=== PATIENT | female | born 1995 | race Caucasian/White ===

== ENCOUNTER 2025-01-10 09:55 | Outpatient (AMB) | payer OTHER, SELFPAY ==
[2025-01-10 09:58] VITALS: BP 114/72; PULSE 106; TEMP 37.2; O2SAT 98; BMI 28.4
--- NOTE | 2025-01-10 09:58 | MHC.PC.OV ---
Vital Signs 01/10/25 09:58 Height 5 ft 2.25 in Weight 156 lb 9.6 oz BMI 28.4 BP 114/72 Blood Pressure Location Lt brachial Position Sitting Pulse 106 H Pulse Source Pulse Oximeter Temp 99.0 F Temp Source Oral Pulse Oximetry (%) 98 Oxygen Delivery Method Room Air Intake Visit Reasons: establish care/ prescription refills Intake Note: Patient is a new patient here to establish care. Transferring care from [facility] in [facility]. Medical records have not been requested and have not been received. Patient completed Authorization to Release Medical Information form today. 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 Required: No Accompanied by: Self / Same As Patient Allergies No Known Allergies Allergy (Verified 01/10/25 10:21) Medication List - Last Reconciled 01/10/25 by KAVON Rock No Known Home Meds Tobacco use date assessed: 01/10/25 Dental Screening Dental Screen Date: 01/10/25 Did you have a dental visit in the last 12 months?: Yes Did you have a dental problem in the last 6 months where you did not have access to dental care?: No Was dental information given to patient?: Patient has dentist HPI establish care/ prescription refills HPI Details The patient presenting to establish care Previous PCP:[facility] in [facility] Last visit: April PE:same Specialist: Not now, previously seen Psychiatry OBGYN:need referral Past medical history: ADHD-reports she was taking Adderall while seen Psychiatry. Previous PCP gave her a hard time ordering this medication and she has been struggling without it. Medications:n/a Family HX:HTN-mother, Alcohol abuse-brother Problem: Reports she is having trouble losing weight Reports working out on diet without seen much difference The patient is also requesting to go back on Adderall Discussed with the patient that I will need to see the recommendations for her being on Adderall to place an order Since his condition is not assessed in this office, however, her prescription could be maintained if it is recommended by a licensed professional. Patient also complain of left shoulder pain with cracking sounds with movements Patient also reports that when she went to donate plasma she was still that she has an arrhythmia No chest pain, shortness of breath, heart palpitation, dizziness No abdominal pain/change in bowel habits No urinary symptoms PFSH Medical History (Updated 01/11/25 @ 08:34 by KAVON Rcok) ADHD Surgical History Hx of wisdom tooth extraction History of tonsillectomy and adenoidectomy Hx of section Family History Mother Hypertension Father No problems noted. Brother Alcohol abuse Family history of substance abuse Son No problems noted. 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 1. Little interest or pleasure in doing things: not at all 2. Feeling down, depressed, or hopeless: not at all 3. Trouble falling or staying asleep, or sleeping too much: not at all 4. Feeling tired or having little energy: not at all 5. Poor appetite or overeating: not at all 6. Feeling bad about yourself - or that you are a failure or have let yourself or your family down: not at all 7. Trouble concentrating on things, such as reading the newspaper or watching television: several days 8. Moving or speaking so slowly that other people could have noticed. Or the opposite - being so fidgety or restless that you have been moving around a lot more than usual: not at all 9. Thoughts that you would be better off or of hurting yourself in some way: not at all Total score: 1 Depression Screening Interpretation: Negative Depression Screening Done: Yes 39025 - PHQ-9 Billing: Yes Source: Developed by Drs. Jesus Whaley, Kathi Elena, Ramin Lugo and colleagues, with an educational wallace from [employer]. Thrive Questionnaire Date Thrive assessed: 01/10/25 I am a: Patient What is your living situation today?: I have a steady place to live Within the past 12 months, did the food you bought not last and you didn't have the money to get more?: Never true Within the past 12 months, did you worry whether your food would run out before you got money to buy more?: Never true Do you have trouble paying for medicines?: No Do you have trouble getting transportation to medical appointments?: No Do you have trouble paying your heating and electricity bill?: No Do you have trouble taking care of your child, family member or friend?: No Do you have trouble with day-to-day activities such as bathing, preparing meals, shopping, managing finances, etc.?: No Are you currently unemployed and looking for a job?: No Are you interested in more education?: No Please select the resources that you would like help with: None Currently or been in a relationship where the following occur: No concerns reported THRIVE Score: 0 AUDIT C Alcohol Use Questionnaire (AUDIT-C) 1. How often do you have a drink containing alcohol?: Monthly or less 2. How many drinks containing alcohol do you have on a typical day when you are drinking?: 1 or 2 3. How often do you have six or more drinks on one occasion?: Never Total Score: 1 Score Reviewed/Action Taken: No ROSI-7 AMB Questionnaire ROSI-7 Date ROSI - 7 assessed: 01/10/25 Feeling nervous, anxious, or on edge: 0 = Not at all Not being able to stop or control worryin = Not at all Worrying too much about different things: 0 = Not at all Trouble relaxin = Not at all Being so restless that it is hard to sit still: 0 = Not at all Becoming easily annoyed or irritable: 1 = Several days Feeling afraid as if something awful might happen: 0 = Not at all Total ROSI-7 score (0-4 normal; 5-9 mild; 10-14 moderate; 15-21 severe): 1 Source: Developed by Kathi Roldan B.W. Ulices, Ramin Lugo and colleagues, with an educational wallace from [employer]. ROSI-7 Assessment Billing ROSI-7 Assessment Tool: ROSI-7 Assessment 42911 Review of Systems Const Details: - Psychiatric: Reports difficulties with focus due to ADHD. - Cardiovascular: Reports past cardiac arrhythmias; denies chest pain or persistent palpitations. - Musculoskeletal: Reports left shoulder discomfort with crackling sounds; denies joint pain. - Constitutional: Denies significant weight changes despite efforts at weight loss. Denies headache(s) Eyes Denies loss of vision ENT Denies vertigo, Denies dizziness, Denies headache(s) and Denies sore throat Card Denies chest pain, Denies leg edema, Denies lightheadedness and Reports other (Arrhythmia) Resp Denies cough, Denies hemoptysis and Denies wheezing GI Denies abdominal pain, Denies melena, Denies constipation, Denies diarrhea and Denies vomiting Denies urinary frequency, Denies dysuria and Denies urinary urgency Musc Reports arthralgias (Left shoulder with crepitus), Denies joint swelling, Denies numbness and Denies tingling Neuro Denies Abnormal speech present, Denies behavioral changes, Denies vertigo, Denies dizziness, Denies headache(s), Denies loss of vision, Denies memory loss, Denies numbness and Denies tingling Psych Denies anxiety, Denies behavioral changes, Denies depression, Reports difficulty concentrating, Denies memory loss and Denies panic attacks Shine/Lymph Denies easy bleeding and Denies easy bruising Aller/Immun Denies wheezing Physical exam (Primary Care) Vital Signs: Last Vital Signs Temp 99.0 F 01/10/25 09:58 Pulse 106 H 01/10/25 09:58 BP 114/72 01/10/25 09:58 Pulse Ox 98 01/10/25 09:58 Oxygen Delivery Method Room Air 01/10/25 09:58 BMI result Body Mass Index 28.4 Tobacco/Smoking Status: Tobacco use Status Tobacco use date assessed 01/10/25 01/10/25 10:04 Patient Tobacco Use Status Never used Tobacco 01/10/25 10:18 e-Cigarette/Vaping Use Never Used 01/10/25 10:18 PHQ-9: PHQ-9 Score PHQ-9: Total score 1 01/10/25 21:55 Depression Screening Interpretation: Negative Thrive Assessment: Date of Thrive Assessment Date Thrive assessed 01/10/25 01/10/25 10:04 Currently or been in a relationship where the following occur: No concerns reported Const General: healthy appearing, no acute distress, alert and awake Nutritional Appearance: well nourished Orientation/consciousness: oriented to person, oriented to place and oriented to time HENMT Ears: TM's normal bilaterally General nose exam: Normal nasal mucous membranes and turbinates present Eyes Conjunctivae: conjunctivae normal Sclerae: sclerae normal Pupils: Equal, round and reactive pupils present Neck Neck: Yes no lymphadenopathy and Yes no JVD Thyroid: Thyroid normal Carotids: no bruits Resp Effort & Inspection: normal respiratory effort and not tachypneic Auscultation: no crackles, no rales, no rhonchi and no wheezes Cardio Rate: regular rate Rhythm: regular rhythm Heart sounds: no murmurs and normal S1 and S2 GI Palpation (GI): Soft to palpation, nontender, no hepatomegaly and no splenomegaly Auscultation: normal bowel sounds General: Yes no CVA tenderness Back/Spine/Pelvis Back: no CVA tenderness Skin General skin exam: no rashes or lesions noted and dry skin Neuro General: oriented to person, oriented to place and oriented to time Cranial nerves: Yes Equal, round and reactive pupils present Speech: No Abnormal speech present Gait exam (Neuro): Normal gait present Motor exam (neuro): no tremor noted Extrem Right upper extremity: full ROM Left upper extremity: full ROM Right lower extremity: full ROM; no edema Left lower extremity: full ROM; no edema Psych Mental Status: mental status grossly normal Speech and movement: Normal speech and movement present Affect: normal affect Attitude: cooperative Thought process: Normal thought process present Coding Level of Care Code New Pt Level 3 (34001) Diagnoses Attention deficit hyperactivity disorder (ADHD), unspecified ADHD type F90.9 Attention deficit-hyperactivity disorder type: unspecified Cardiac arrhythmia, unspecified cardiac arrhythmia type I49.9 Arrhythmia type: unspecified cardiac arrhythmia Additional Codes ROSI-7 Assessment Billing - ROSI-7 Assessment Tool: ROSI-7 Assessment 86547 ([id number]) PHQ-9 - 94104 - PHQ-9 Billing: Yes ([id number]) Time Spent (min) 31 Assessment & Plan Assessment & Plan (1) ADHD: Code(s): F90.9 - Attention-deficit hyperactivity disorder, unspecified type Category: Medical Qualifiers: Attention deficit-hyperactivity disorder type: unspecified Qualified Code(s): F90.9 - Attention-deficit hyperactivity disorder, unspecified type Plan: Patient is establishing care and is looking to be started back on Adderall. Patient reports that she was sick in his medication for a while, but after started seeing a new PCP, there was some trouble in giving the medication reordered. She has been without his medication for a little while now and has been struggling to hold it together. We will obtain the information from the psychiatrist who diagnosed the patient before prescribing this medication. We will also obtain an EKG checked for any heart issues that may be an contraindication to taking this medication. (2) Arrhythmia: Code(s): I49.9 - Cardiac arrhythmia, unspecified Category: Medical Qualifiers: Arrhythmia type: unspecified cardiac arrhythmia Qualified Code(s): I49.9 - Cardiac arrhythmia, unspecified Plan: Patient reports that when she went to go give plasma she was told that she had sinus arrhythmia. An EKG ordered which scheduled labs to further evaluate. Orders: Orders Lipid Panel 01/10/25 Z. - Encounter for general adult medical examination without abnormal findings Glucose Fasting 01/10/25. - Encounter for general adult medical examination without abnormal findings XR shoulder LT min 2V 01/10/25 M25.512 - Pain in left shoulder Complete Blood Count Auto Diff 01/10/25 Z. - Encounter for general adult medical examination without abnormal findings Comprehensive [place]. Panel Fast 01/10/25. - Encounter for general adult medical examination without abnormal findings TSH reflex Free T4 01/10/25 Z. - Encounter for general adult medical examination without abnormal findings UA CC w/rflx Micro + Cult 01/10/25 Z. - Encounter for general adult medical examination without abnormal findings Vitamin D 25-OH Total 01/10/25. - Encounter for general adult medical examination without abnormal findings ECG 12 lead EKG 01/10/25 I49.9 - Cardiac arrhythmia, unspecified Referrals [facility] [employer] [employer] [facility] Referral Z01.419 - Encounter for gynecological examination (general) (routine) without abnormal findings
== END 2025-01-10 10:52 | disposition home or self-care (01) ==
DX: F90.9 Attention-deficit hyperactivity disorder, unspecified type (principal); I49.9 Cardiac arrhythmia, unspecified

== ENCOUNTER → 2025-01-10 09:55 | Outpatient (BNVA) | payer OTHER, SELFPAY | DX: F90.9 Attention-deficit hyperactivity disorder, unspecified type (principal); I49.9 Cardiac arrhythmia, unspecified | CPT/HCPCS: 96127 ==

== ENCOUNTER 2025-01-14 06:48 | Outpatient (REF) | payer OTHER, SELFPAY ==
[2025-01-14 10:12] LABS: MANUAL DIFF FLAG NO
[2025-01-14 10:25] LABS: Basophils Absolute Auto 0.1 X10*3/uL (0.0-0.2); Basophils Percent Auto 1.1 % (0-2); Eosinophils Absolute Auto 0.4 X10*3/uL (0.0-0.4); Eosinophils Percent Auto 6.9 % (0-4); Hematocrit 37.5 % (37.0-47.0); Hemoglobin 12.2 g/dl (12.0-16.0); Imm Gran Abs Auto 0.01 X10*3/uL (0.00-0.03); Imm Gran Pct Auto 0.2 % (0.0-0.4); Lymphocytes Absolute Auto 2.4 X10*3/uL (1.2-4.9); Lymphocytes Percent Auto 37.9 % (20-40); Mean Corpuscular HGB Conc 32.5 g/dl (31.0-35.0); Mean Corpuscular Hemoglobin 29.1 pg (27.0-33.0); Mean Corpuscular Volume 89.5 fL (80.0-98.0); Mean Platelet Volume 10.5 fL (9.4-12.3); Monocytes Absolute Auto 0.6 X10*3/uL (0.1-1.2); Monocytes Percent Auto 8.7 % (2-11); Neutrophils Absolute Auto 2.9 x10*3/uL (2.0-8.3); Neutrophils Percent Auto 45.2 % (45-73); Platelet Count 332 X10*3/uL (160-400); Red Blood Count 4.19 X10*6/uL (4.20-5.50); Red Cell Distribution Width 12.3 % (11.0-16.0); White Blood Count 6.3 X10*3/uL (4.8-10.8)
[2025-01-14 10:54] LABS: Alanine Aminotransferase 15 U/L (0-31); Albumin Level 4.4 g/dL (3.5-5.0); Anion Gap 14 (12-20); Aspartate Amino Transferase 28 U/L (5-31); Bilirubin Total 1.7 mg/dL (0.0-1.0); Blood Urea Nitrogen 16 mg/dL (9-16); Calcium 9.1 mg/dL (8.4-10.2); Carbon Dioxide 23 mmol/L (22-29); Chloride 106 mmol/L (96-108); Cholesterol 180 mg/dL (<200); Estimated Glomerular Filt Rate > 60; Glucose Fasting 84 mg/dL (60-99); HDL Cholesterol 47 mg/dL (>40); LDL Cholesterol Calculated 119 mg/dL (<100); Potassium 3.8 mmol/L (3.3-5.1); Sodium 139 mmol/L (135-145); Total Protein 7.2 g/dL (6.5-8.0); Triglycerides 73 mg/dL (<150)
[2025-01-14 11:03] LABS: Appearance Urine Turbid; Color Urine Dark Yellow; Glucose Urine UA Negative (Negative); Leukocyte Esterase Urine Trace (Negative); Nitrite Urine Negative (Negative); PH 5.5 (5.0-9.0); Specific Gravity - Urine >= 1.030 (1.005-1.025); UMIC TRIGGER UACC YES; Urine Blood Negative (Negative); Urine Ketones 15 mg/dL (Negative); Urine Protein Negative (Neg-Trace)
[2025-01-14 11:21] LABS: TSH reflex Free T4 2.72 uIU/mL (0.32-4.0); Vitamin D 25-OH Total 79.7 ng/mL (>30)
[2025-01-14 11:22] LABS: Bacteria Urine 2+ (None Seen); Hyaline Casts Urine 0-2 /LPF (0-2); RBC Urine 0-2 /HPF (0-2); WBC Urine 0-5 /HPF (0-5)
[2025-01-14 12:51] LABS: Alkaline Phosphatase 46 U/L (39-117)
== END 2025-01-14 06:49 | disposition home or self-care (01) ==
LOC: HO.HMGCLDS 06:48
DX: Z00.00 Encounter for general adult medical examination without abnormal findings (principal); Z13.6 Encounter for screening for cardiovascular disorders
CPT/HCPCS: 36415; 80053; 80061; 81001; 81003; 82306; 84443; 85025

== ENCOUNTER 2025-01-30 11:58 | Outpatient (REF) | payer OTHER, SELFPAY ==
--- NOTE | ~2025-01-30 | XR_ITS ---
EXAMINATION: XR SHOULDER, LEFT CLINICAL INFORMATION: M25.512 - Pain in left shoulder COMPARISON: None available. TECHNIQUE: AP external rotation, Grashey, scapular Y, and axillary views of the left shoulder. FINDINGS: Normal bone mineralization. No fracture, dislocation, or suspicious bone lesion. Normal alignment. The glenohumeral joint is normal. The AC joint is normal. There is a type II acromion. No undersurface spurring. The subacromial space is preserved. Remainder of the soft tissue and bony structures appear normal. XR/XR shoulder LT min 2V IMPRESSION: Normal left shoulder. Electronically signed by: Donaldo Geller MD 01/30/2025 01:36 PM EDT
== END 2025-01-30 11:59 | disposition home or self-care (01) ==
LOC: HO.HMGCX 11:58
DX: M25.512 Pain in left shoulder (principal)
CPT/HCPCS: 73030

== ENCOUNTER → 2025-01-30 12:05 | Outpatient (BNV) | payer OTHER, SELFPAY | PROVIDERS: Visit Provider Radiology Diagnostic Radiology | DX: M25.512 Pain in left shoulder (principal) | CPT/HCPCS: 73030 ==

== ENCOUNTER → 2025-02-13 07:50 | Outpatient (REF) | payer OTHER, SELFPAY ==
--- NOTE | 2025-02-13 08:03 | ECG_ITS ---
Test Reason : cardiac arrhythmia Blood Pressure : */* mmHG Vent. Rate : 77 BPM Atrial Rate : 77 BPM P-R Int : 142 ms QRS Dur : 86 ms QT Int : 408 ms P-R-T Axes : 66 43 47 degrees QTcB Int : 461 ms Normal sinus rhythm with sinus arrhythmia Normal ECG No previous ECGs available Referred By: Walt Victoria Electronically Signed By: VIJAY MONTALVO MD
== END ==
LOC: HO.CARD 07:50
DX: I49.9 Cardiac arrhythmia, unspecified (principal)
CPT/HCPCS: 93005

== ENCOUNTER → 2025-02-13 08:03 | Outpatient (BNV) | payer OTHER, SELFPAY | PROVIDERS: Visit Provider Internal Medicine Cardiovascular Disease | DX: I49.9 Cardiac arrhythmia, unspecified (principal) | CPT/HCPCS: 93010 ==

== ENCOUNTER 2025-02-21 09:24 | Outpatient (AMB) | payer OTHER, SELFPAY ==
[2025-02-21 09:27] VITALS: BP 98/68; PULSE 85; RESP 18; TEMP 37.3; O2SAT 99; BMI 27.7
--- NOTE | 2025-02-21 09:27 | A.OFFPC_ITS ---
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: No Accompanied by: Self / Same As Patient Allergies No Known Allergies Allergy (Verified 02/21/25 09:50) Medication List - Last Reconciled 02/21/25 by KAVON Rock No Known Home Meds Tobacco use date assessed: 02/21/25 Dental Screening Dental Screen Date: 02/21/25 Did you have a dental visit in the last 12 months?: Yes Did you have a dental problem in the last 6 months where you did not have access to dental care?: No Was dental information given to patient?: Patient has dentist HPI Medication Refill/adderral HPI Details The patient is a 29-year-old female presenting for medicinal treatment for ADHD. On her previous visit the patient reports that she was diagnosed with ADHD and was being treated with adderall. However, after her provider was changed, the medication was stopped and she has been struggling with concentrating and making decisions. Explained the patient that after obtaining her records with the diagnosis of this disease, we could move forward with a treatment plan. She is following up today to discuss treatment and she also has complaints of low back pain. The pain began approximately a month ago and has been persistent, with a similar episode occurring a year and a half ago. The patient describes the pain as sharp and sometimes dull, with a severity reaching up to 7 out of 10. The pain is localized to the lower back and does not radiate down the legs. It is exacerbated by bending and squatting, particularly when attempting to rise from a squat. The patient reports that the pain is worse in the morning and im proves with movement throughout the day. Previously, the patient was treated with muscle relaxants, which provided relief after a few days. She has also tried NSAIDs, which help but do not completely alleviate the pain. The patient has considered chiropractic treatment but found it to be of limited benefit. [facility] Medical History (Updated 02/22/25 @ 11:43 by KAVON Rock) ADHD Surgical History Hx of wisdom tooth extraction History of tonsillectomy and adenoidectomy Hx of section Family History Mother Hypertension Father No problems noted. Brother Alcohol abuse Family history of substance abuse Son No problems noted. 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 Cognitive needs: No Hearing needs: No Vision needs: Yes (Glasses) Female Reproductive History Menstrual Age of Menarche: 11 Questionnaire Thrive Questionnaire Date Thrive assessed: 02/21/25 I am a: Patient What is your living situation today?: I have a steady place to live Within the past 12 months, did the food you bought not last and you didn't have the money to get more?: Never true Within the past 12 months, did you worry whether your food would run out before you got money to buy more?: Never true Do you have trouble paying for medicines?: No Do you have trouble getting transportation to medical appointments?: No Do you have trouble paying your heating and electricity bill?: No Do you have trouble taking care of your child, family member or friend?: No Do you have trouble with day-to-day activities such as bathing, preparing meals, shopping, managing finances, etc.?: No Are you currently unemployed and looking for a job?: No Are you interested in more education?: No Please select the resources that you would like help with: None Currently or been in a relationship where the following occur: No concerns reported THRIVE Score: 0 AUDIT C Alcohol Use Questionnaire (AUDIT-C) 1. How often do you have a drink containing alcohol?: 2-3 times a week 2. How many drinks containing alcohol do you have on a typical day when you are drinking?: 3 or 4 3. How often do you have six or more drinks on one occasion?: Never Total Score: 4 Score Reviewed/Action Taken: Yes ROSI-7 AMB Questionnaire ROSI-7 Date ROSI - 7 assessed: 01/10/25 Source: Developed by Drs. Jesus Whaley, Kathi Elena, Ramin Lugo and colleagues, with an educational wallace from [employer]. Review of Systems Const Denies headache(s) Eyes Denies loss of vision ENT Denies vertigo, Denies dizziness, Denies headache(s) and Denies sore throat Card Denies chest pain, Denies leg edema and Denies lightheadedness Resp Denies cough, Denies hemoptysis and Denies wheezing GI Denies abdominal pain, Denies melena, Denies constipation, Denies diarrhea and Denies vomiting Denies urinary frequency, Denies dysuria and Denies urinary urgency Musc Reports back pain, Denies arthralgias, Denies joint swelling, Denies numbness and Denies tingling Neuro Denies Abnormal speech present, Denies behavioral changes, Denies vertigo, Denies dizziness, Denies headache(s), Denies loss of vision, Denies memory loss, Denies numbness and Denies tingling Psych Denies anxiety, Denies behavioral changes, Denies depression, Reports difficulty concentrating, Denies memory loss and Denies panic attacks Shine/Lymph Denies easy bleeding and Denies easy bruising Aller/Immun Denies wheezing Physical exam (Primary Care) Vital Signs: Last Vital Signs Temp 99.2 F 02/21/25 09:27 Pulse 85 02/21/25 09:27 Resp 18 02/21/25 09:27 BP 98/68 02/21/25 09:27 Pulse Ox 99 02/21/25 09:27 Oxygen Delivery Method Room Air 02/21/25 09:27 BMI result Body Mass Index 27.7 Tobacco/Smoking Status: Tobacco use Status Tobacco use date assessed 02/21/25 02/21/25 09:35 Patient Tobacco Use Status Never used Tobacco 02/21/25 09:35 e-Cigarette/Vaping Use Never Used 02/21/25 09:35 Thrive Assessment: Date of Thrive Assessment Date Thrive assessed 02/21/25 02/21/25 09:35 Currently or been in a relationship where the following occur: No concerns reported Const General: healthy appearing, no acute distress, alert and awake Nutritional Appearance: well nourished Orientation/consciousness: oriented to person, oriented to place and oriented to time HENMT Ears: external ears normal General nose exam: Normal external nose present Eyes Conjunctivae: conjunctivae normal Sclerae: sclerae normal Pupils: Equal, round and reactive pupils present Neck Neck: Yes no lymphadenopathy and Yes no JVD Thyroid: Thyroid normal Carotids: no bruits Resp Effort & Inspection: normal respiratory effort and not tachypneic Auscultation: no crackles, no rales, no rhonchi and no wheezes Cardio Rate: regular rate Rhythm: regular rhythm Heart sounds: no murmurs and normal S1 and S2 GI Palpation (GI): Soft to palpation, nontender, no hepatomegaly and no splenomegaly Auscultation: normal bowel sounds General: Yes no CVA tenderness Back/Spine/Pelvis Back: no CVA tenderness Thoracic/Lumbar Spine: No thoracic spinal tenderness, No lumbar spinal tenderness and No straight leg raise positive Skin General skin exam: no rashes or lesions noted and dry skin Neuro General: oriented to person, oriented to place and oriented to time Cranial nerves: Yes Equal, round and reactive pupils present Speech: No Abnormal speech present Gait exam (Neuro): Normal gait present Motor exam (neuro): no tremor noted Extrem Right upper extremity: full ROM Left upper extremity: full ROM Right lower extremity: full ROM; no edema Left lower extremity: full ROM; no edema Psych Mental Status: mental status grossly normal Speech and movement: Normal speech and movement present Affect: normal affect Attitude: cooperative Thought process: Normal thought process present Results Reviewed Results Reviewed: Laboratory Tests 01/14/25 07:13 WBC 6.3 RBC 4.19 L Hgb 12.2 Hct 37.5 MCV 89.5 MCH 29.1 MCHC 32.5 RDW 12.3 Plt Count 332 Sodium 139 Potassium 3.8 Chloride 106 Carbon Dioxide 23 Anion Gap 14 BUN 16 Creatinine 0.80 Estimated GFR > 60 Fasting Glucose 84 Calcium 9.1 Total Bilirubin 1.7 H AST 28 ALT 15 Alkaline Phosphatase 46 Total Protein 7.2 Albumin 4.4 Triglycerides 73 Cholesterol 180 LDL Cholesterol, Calc 119 H HDL Cholesterol 47 25-OH Vitamin D Total 79.7 TSH 2.72 Urine Color Dark Yellow Urine Appearance Turbid Urine pH 5.5 Ur Specific [place] >= 1.030 H Urine Protein Negative Urine Glucose (UA) Negative Urine Ketones 15 Urine Blood Negative Urine Nitrite Negative Ur Leukocyte Esterase Trace H Urine RBC 0-2 Urine WBC 0-5 Ur Squamous Epith Cells 6-10 Urine Bacteria 2+ Hyaline Casts 0-2 Coding Level of Care Code Est Pt Level 3 (11878) Diagnoses Attention deficit hyperactivity disorder (ADHD), unspecified ADHD type F90.9 Attention deficit-hyperactivity disorder type: unspecified Pure hypercholesterolemia E78.00 Hyperlipidemia type: pure hypercholesterolemia Bilateral low back pain without sciatica, unspecified chronicity M54.50 Chronicity: unspecified Back pain laterality: bilateral Sciatica presence: without sciatica Time Spent (min) 32 Assessment & Plan Assessment & Plan (1) ADHD: Code(s): F90.9 - Attention-deficit hyperactivity disorder, unspecified type Category: Medical Qualifiers: Attention deficit-hyperactivity disorder type: unspecified Qualified Code(s): F90.9 - Attention-deficit hyperactivity disorder, unspecified type Plan: Will start the patient on Adderrall ER 20 mg daily she has a physical exam scheduled for 05/27/25 will follow with the patient at this appt contact office sooner for any concerns (2) HLD (hyperlipidemia): Code(s): E78.5 - Hyperlipidemia, unspecified Category: Medical Qualifiers: Hyperlipidemia type: pure hypercholesterolemia Qualified Code(s): E78.00 - Pure hypercholesterolemia, unspecified Plan: ldl 119, 01/24/25 Discussed lifestyle modifications including dietary changes and physical activity (3) Low back pain: Code(s): M54.50 - Low back pain, unspecified Category: Medical Qualifiers: Chronicity: unspecified Back pain laterality: bilateral Sciatica presence: without sciatica Qualified Code(s): M54.50 - Low back pain, unspecified Plan: Avoid bed rest (including sitting in bed) and to simply limit painful activities; improvement usually occurs within a few weeks May use cool packs; may alternate cold and hot packs Exercises a luna (e.g., walking, swimming, cycling) as soon as possible, starting with 5-10 min and walk-in up to 20-30 minute q.day Abdominal core and back strengthening exercises may help to prevent future problems methocarbamol 750 mg q 8H as needed Medications: New dextroamphetamine-amphetamine 20 mg ER (Adderall XR) Partial Fill upon patient request. 20 mg PO DAILY 30 caps 0RF methocarbamol 750 mg PO Q8H 30 tabs 1RF
== END 2025-02-21 10:15 | disposition home or self-care (01) ==
LOC: HO.HMCH 09:25
DX: F90.9 Attention-deficit hyperactivity disorder, unspecified type (principal); E78.00 Pure hypercholesterolemia, unspecified; M54.50 Low back pain, unspecified

== ENCOUNTER → 2025-02-21 09:24 | Outpatient (BNVA) | payer OTHER, SELFPAY | DX: Z13.89 Encounter for screening for other disorder (principal) ==

== ENCOUNTER 2025-05-01 08:26 | Outpatient (REF) | payer OTHER, SELFPAY ==
--- NOTE | ~2025-05-01 | XR_ITS ---
EXAMINATION: XR LUMBAR SPINE 2-3 VIEWS HISTORY: M54.50 - Low back pain, unspecified COMPARISON: There are no prior studies for comparison. FINDINGS: AP, lateral, and coned down views of the lumbar spine are submitted. Osseous mineralization is normal. Five nonrib-bearing lumbar vertebral bodies are identified, maintaining normal height and alignment without evidence of fracture or spondylolisthesis. The intervertebral disc spaces are preserved. The posterior elements are intact. The visualized paraspinal soft tissues are unremarkable. XR/XR lumbar spine 2-3V IMPRESSION: Unremarkable examination of the lumbar spine. Electronically signed by: Jesus Arshad MD 05/01/2025 08:47 AM EDT
--- OUTSIDE RECORDS SUMMARY | 2025-05-01 09:03 | XMS_ITS | Clinical Summary ---
Author Organization [facility] Address [address] [place] [address] Phone Care Team Providers Care Air Pollution Inspector Name Role Phone Lamar Ortez MD Unavailable [phone] Yosi Polo DMD Unavailable Abraham Denney MD Unavailable Jl Pineda MD Primary Care Provi saeid Allergies Active Allergy Reactions Criticality Noted Date Comments Peanut Other (See Comments) 02/09/2020 Anaphylaxis-severe Tree Nut Other (See Comments) 02/09/2020 Anaphylaxis-severe Medications EPINEPHrine (EPIPEN 2-AKIN) 0.3 mg/0.3 mL auto-injector Inject 0.3 mg into the muscle once as needed. Severe allergy Active vitamin with Ca-Iron-FA ( VITAMIN PLUS LOW IRON) 27 mg iron- 1 mg Tab tablet Take 1 tablet by mouth. Active omeprazole (PRILOSEC) 20 mg TbEC Take 20 mg by mouth daily before breakfast. 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 She had a large reaction to Omar grass and smaller to other grasses, ragweed and mugwort. 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 She had large reactions to walnut, almond and hazelnut, but a very small reaction to pecan. She was positive for peanut, brazil nut, green pea, sesame as well as almond butter. Nutella was negative. 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 Attention deficit hyperactiv ity disorder, predominantly inattentive type 06/12/2018 Encounter for general adult medical examination without abnormal findings 06/12/2018 Snoring 06/17/2011 Comments Yes Resolved Problems Problem Noted Date Diagnosed Date Resolved Date Dysuria 01/01/2019 06/11/2020 Acute vaginitis 08/03/2018 06/11/2020 Dizziness and giddiness 02/08/201806/05 Immunizations Immunization Administration Dates Next Due DTaP 09/13/1999, 7,03/05/1996,1995,1995 HPV,quadrivalent 11/26/2009,08/07/2008, 8 Hepatitis B, unspecified formulation 06/18/1996, 1995,1995 Hib, unspecified formulation 09/27/1996, 03/05/1996,01/05/1996,1995 IPV 09/13/1999 Influenza, Unspecified Formulation 06/11,06/20/2019,06/12/2018,2015,07/20/2015,07/12/2013,07/27/2012 MMR 09/15/2000,12/13/1996 Meningococcal MCV4P 01/29/2008 Meningococcal MPSV4 07/12/2013 Polio - OPV 03/05/1996,01/05/1996,1995 Tdap 09/29/2020,06/12/2018,08/07/2008 Varicella 08/10/2016,09/07/1997 Family History Medical History Relation Comments Bipolar disorder Father Breast cancer Maternal Grandmother per annual note 2012 EMD Skin cancer Maternal Grandmother Relation Status Comments Father Other Maternal Grandmother Other Social History Tobacco Use Types Packs/Day Years Used Date Smoking Tobacco: Never Smokeless Tobacco: Never Alcohol Use Standard Drinks/Week Comments Not Currently 0 (1 standard drink = 0.6 oz pur e alcohol) Education Answer Date Recorded Are you interested in more education? Not on melvi e 12/30/2022 Are you concerned about learning? Not on file 12/30/2022 No 12/30/2022 No 12/30/2022 Digital Access Answer Date Recorded No 01/28/2023 No 01/28/2023 No 01/28/2023 Reliable internet access at home? Not on file 01/28/2023 Device with a working camera? Not on file Comments Yes Sex and Gender Information Value Date Recorded Sex Assigned at Female 09/28/2020 9:30 AM EST Legal Sex Female 10:46 PM EDT Gender Identity Female 09/28/2020 9:30 AM EST Sexual Orientation Straight 09/28/2020 9: 30 AM EST Occupation Industry Job Start Date Job End Date Student. 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 ([employer]); Not on file Not on file Not on file Last Filed Vital Signs Vital Sign Reading Time Taken Comments Blood Pressure 110/78 09/09/2019 4:03 PM EST Pulse - - Temperature - - Respiratory Rate - - Oxygen Saturation - - Inhaled Oxygen Concentration - - Weight 69.9 kg (154 lb) 06/25/2020 8:05 AM EDT Height 157.5 cm (5' 2 ) 06/25/2020 8:05 AM EDT Body Mass Index 28.17 06/25/2020 8:05 AM EDT Plan of Treatment Health Maintenance Due Date Last Done Comments HIV ONE-TIME SCREENING (18-65 YEARS) 2013 PAP SMEAR 06/12/2021 06/12/2018 DEPRESSION SCREENING 06/23/2021 06/23/2020 SMOKING STATUS SCREENING (Once After 26 Yrs) 2021 COVID-19 VACCINE ( season) 2024 10/12/2021, 09/14/2021 Adult Td,Tdap Booster 09/29/2030 09/29/2020 , 06/12/2018, 08/07/2008 RSV VACCINE (1 - 1-dose 75+ series) 2070 HIB VACCINES Completed 09/27/1996, 10/1995, 01/05/1996, Additional history exists MENINGOCOCCAL VACCINES (ACWY) Aged Out 07/12/2013, 01/29/2008 No longer eligibl e based on patient's age to complete this topic HEPATITIS C SCREENING Completed 09/11/2020, 020 HEPATITIS A VACCINES Aged Out No long er eligible based on patient's age to complete this topic MENINGOCOCCAL VACCINES (B) Aged Out N o longer eligible based on patient's age to complete this topic PNEUMOCOCCAL VACCINES (0-49 years) Aged Out No longer eligible based on patient's age to complete this topic Medical Devices Not on file Procedures Procedure Name Priority Date/Time Associated Diagnosis Comments PAP SMEAR FOR RESULT ENTRY ONLY Routine 06/12/2018 from Last 3 Months or Most Recently Relevant to Health Maintenance Results * PAP SMEAR FOR RESULT ENTRY ONLY (06/12/2018) Pap smear Negative Historical Provider MD HEALTH MAINTENANCE Final Result from Last 3 Months or Most Recently Relevant to Health Maintenance Insurance [facility] NAVIGATOR POS ASHLEY NAVIGATOR POS AHSLEY NAVIGATOR POS ASHLEY NAVIGATOR POS [facility] NAVIGATOR POS [facility] [place] NAVIGATOR POS [facility] NAVIGATOR POS [facility] NAVIGATOR POS [facility] NAVIGATOR POS [facility] NAVIGATOR POS [facility] DIRECT Care Teams Air Pollution Inspector Relationship Specialty Start Date End Date Jl Pineda MD [address] [place] [id number] PCP - General 07/05/22 Lamar Ortez MD [address] [address] Allergy and Immunology 06/24/20 Yosi Polo DMD [address] [address] clinical trial assistant 06/24/20 Abraham Denney MD [address] [address] Otolaryngology 06/24/20 Additional Source Comments The information contained in this document represents components of the legal health record. It is not the complete legal health record.[facility]
== END 2025-05-01 08:27 | disposition home or self-care (01) ==
LOC: HO.HMGCX 08:26
DX: M54.50 Low back pain, unspecified (principal)
CPT/HCPCS: 72100

== ENCOUNTER → 2025-05-01 08:31 | Outpatient (BNV) | payer OTHER, SELFPAY | PROVIDERS: Visit Provider Radiology Diagnostic Radiology | DX: M54.50 Low back pain, unspecified (principal) | CPT/HCPCS: 72100 ==

== ENCOUNTER 2025-05-27 09:20 | Outpatient (AMB) | payer OTHER, SELFPAY ==
[2025-05-27 09:34] VITALS: BP 116/64; PULSE 76; RESP 18; TEMP 36.3; O2SAT 97; BMI 25.3
--- NOTE | 2025-05-27 09:34 | A.OFFPC_ITS ---
Vital Signs 3 05/27/25 09:34 Height 5 ft 2.25 in Weight 139 lb 6 oz BMI 25.3 BP 116/64 Blood Pressure Location Lt brachial Position Sitting Respiration 18 Pulse 76 Pulse Source Pulse Oximeter Temp 97.3 F Temp Source Temporal Artery Scan Pulse Oximetry (%) 97 Oxygen Delivery Method Room Air Intake Visit Reasons: annual physical Basin Operator Required: No Accompanied by: Self / Same As Patient Allergies No Known Allergies Allergy (Verified 05/27/25 10:19) Medication List - Last Reconciled 05/27/25 by KAVON Rock dextroamphetamine-amphetamine 20 mg ER (Adderall XR) 20 mg PO DAILY methocarbamol 750 mg PO Q8H Tobacco use date assessed: 05/27/25 Dental Screening Dental Screen Date: 05/27/25 Did you have a dental visit in the last 12 months?: Yes Did you have a dental problem in the last 6 months where you did not have access to dental care?: No Was dental information given to patient?: Patient has dentist HPI annual physical 2 HPI0 Details Patient presenting for annual physical Dentist: up to date Eye: reports that she working on getting a new doctor Snellen: Right: Left: Corrected vision:yes-wear glasses at night STI screening:n/a Colonoscopy:n/a Pap Smer: Appointment in October PHQ-9:n/a Flu: up to date COVID: x2 Tdap: 4 years ago Diet:regular Exercise:3-4 times a week left lateral thigh skin lesion-started as what appeared to be a mole or skin tags, flesh colored. The patient reports that she tried to freeze this off and it became hard. [facility] Medical History ADHD Surgical History Hx of wisdom tooth extraction History of tonsillectomy and adenoidectomy Hx of section Family History Mother Hypertension Father No problems noted. Brother Alcohol abuse Family history of substance abuse Son No problems noted. 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 Cognitive needs: No Hearing needs: No Vision needs: Yes (Glasses) Female Reproductive History Menstrual Age of Menarche: 11 Questionnaire Thrive Questionnaire Date Thrive assessed: 01/08/25 I am a: Patient What is your living situation today?: I have a steady place to live Within the past 12 months, did the food you bought not last and you didn't have the money to get more?: Never true Within the past 12 months, did you worry whether your food would run out before you got money to buy more?: Never true Do you have trouble paying for medicines?: No Do you have trouble getting transportation to medical appointments?: No Do you have trouble paying your heating and electricity bill?: No Do you have trouble taking care of your child, family member or friend?: No Do you have trouble with day-to-day activities such as bathing, preparing meals, shopping, managing finances, etc.?: No Are you currently unemployed and looking for a job?: No Are you interested in more education?: No Please select the resources that you would like help with: None Currently or been in a relationship where the following occur: No concerns reported THRIVE Score: 0 ROSI-7 AMB Questionnaire ROSI-7 Date ROSI - 7 assessed: 01/10/25 Source: Developed by Drs. Jesus Whaley, Kathi Elena, Ramin Lugo and colleagues, with an educational wallace from [employer]. Review of Systems Const Denies headache(s) Eyes Denies loss of vision ENT Denies vertigo, Denies dizziness, Denies headache(s) and Denies sore throat Card Denies chest pain, Denies leg edema and Denies lightheadedness Resp Denies cough, Denies hemoptysis and Denies wheezing GI Denies abdominal pain, Denies melena, Denies constipation, Denies diarrhea and Denies vomiting Denies urinary frequency, Denies dysuria and Denies urinary urgency Musc Reports back pain (Low back pain that is radiating into left lower leg), Denies arthralgias, Denies joint swelling, Denies numbness and Denies tingling Skin/Breast Reports lesions (Skin tags or more lesion that was froze by patient) Neuro Denies Abnormal speech present, Denies behavioral changes, Denies vertigo, Denies dizziness, Denies headache(s), Denies loss of vision, Denies memory loss, Denies numbness and Denies tingling Psych Denies anxiety, Denies behavioral changes, Denies depression, Denies memory loss and Denies panic attacks Shine/Lymph Denies easy bleeding and Denies easy bruising Aller/Immun Denies wheezing Physical exam (Primary Care) Vital Signs: Last Vital Signs Temp 97.3 F 05/27/25 09:34 Pulse 76 05/27/25 09:34 Resp 18 05/27/25 09:34 BP 116/64 05/27/25 09:34 Pulse Ox 97 05/27/25 09:34 Oxygen Delivery Method Room Air 05/27/25 09:34 BMI result Body Mass Index 25.3 Tobacco/Smoking Status: Tobacco use Status Tobacco use date assessed 05/27/25 05/27/25 09:41 Patient Tobacco Use Status Never used Tobacco 05/27/25 09:41 e-Cigarette/Vaping Use Never Used 05/27/25 09:41 Thrive Assessment: Date of Thrive Assessment Date Thrive assessed 01/08/25 05/27/25 09:41 Currently or been in a relationship where the following occur: No concerns reported Const General: healthy appearing, no acute distress, alert and awake Nutritional Appearance: well nourished Orientation/consciousness: oriented to person, oriented to place and oriented to time HENAL Ears: TM's normal bilaterally General nose exam: Normal nasal mucous membranes and turbinates present Eyes Conjunctivae: conjunctivae normal Sclerae: sclerae normal Pupils: Equal, round and reactive pupils present Neck Neck: Yes no lymphadenopathy and Yes no JVD Thyroid: Thyroid normal Carotids: no bruits Resp Effort & Inspection: normal respiratory effort and not tachypneic Auscultation: no crackles, no rales, no rhonchi and no wheezes Cardio Rate: regular rate Rhythm: regular rhythm Heart sounds: S1 normal heart sound present, S2 normal heart sound present, no murmurs and normal S1 and S2 GI Palpation (GI): Soft to palpation, nontender, no hepatomegaly and no splenomegaly Auscultation: normal bowel sounds General: Yes no CVA tenderness Back/Spine/Pelvis Back: no CVA tenderness Skin General skin exam: dry skin Lesions: lesion noted (white, raised area to left, upper lateral thigh area) Full body images: 2 1. white, raised area. Report that this had appeared like a mole or skin tag before and she tried to freeze it but it did not fall off. Neuro General: oriented to person, oriented to place and oriented to time Cranial nerves: Yes Equal, round and reactive pupils present Speech: No Abnormal speech present Gait exam (Neuro): Normal gait present Motor exam (neuro): no tremor noted Deep tendon reflexes (DTR's): Right triceps reflex intensity grade: 2+, Left triceps reflex intensity grade: 2+, Rt Biceps (C5, C6): 2+, Left biceps reflex intensity grade: 2+, Right brachioradialis reflex intensity grade: 2+, Left brachioradialis reflex intensity grade: 2+, Right patellar reflex intensity grade: 2+ and Left patellar reflex intensity grade: 2+ Extrem Right upper extremity: full ROM Left upper extremity: full ROM Right lower extremity: full ROM; no edema Left lower extremity: full ROM; no edema Psych Mental Status: mental status grossly normal Speech and movement: Normal speech and movement present Affect: normal affect Attitude: cooperative Thought process: Normal thought process present Coding Level of Care Code Est Pt Prev Care [id number]([id number]) Diagnoses Annual physical exam Z00.00 Bilateral low back pain without sciatica, unspecified chronicity M54.50 Chronicity: unspecified Back pain laterality: bilateral Sciatica presence: without sciatica Women's annual routine gynecological examination Z01.419 Pure hypercholesterolemia E78.00 Hyperlipidemia type: pure hypercholesterolemia Attention deficit hyperactivity disorder (ADHD), unspecified ADHD type F90.9 Attention deficit-hyperactivity disorder type: unspecified Skin lesion L98.9 Time Spent (min) 34 Assessment & Plan Assessment & Plan (1) Annual physical exam: Code(s): Z00.00 - Encounter for general adult medical examination without abnormal findings Category: Medical Plan: The patient is a 29-year-old female presenting for annual physical. On previous visit she was referred to OBGYN, her 1st appointment was canceled and now she has re scheduled to be seen in October 2023. She is up-to-date on her dental exam and has to find a new doctor for her exam. Her last tetanus shot was 4 years ago. The patient is in overall good health. (2) Low back pain: Code(s): M54.50 - Low back pain, unspecified Category: Medical Qualifiers: Chronicity: unspecified Back pain laterality: bilateral Sciatica presence: without sciatica Qualified Code(s): M54.50 - Low back pain, unspecified Plan: Ongoing lower back pain. Lumbar x-ray showed no acute findings. Has been taking muscle relaxants on and off with fair effect prior. Reports that the pain has been increasing and is now going down her right leg. The patient was started on Celebrex 100 mg b.i.d. p.r.n. and she was referred to PT for further evaluation (3) Women's annual routine gynecological examination: Code(s): Z01.419 - Encounter for gynecological examination (general) (routine) without abnormal findings Category: Medical Plan: We will OBGYN referral was placed on previous visit (4) HLD (hyperlipidemia): Code(s): E78.5 - Hyperlipidemia, unspecified Category: Medical Qualifiers: Hyperlipidemia type: pure hypercholesterolemia Qualified Code(s): E 78.00 - Pure hypercholesterolemia, unspecified Plan: LDL slightly elevated at 119 mg/dL Discussed lifestyle modifications including dietary changes and physical activity We will continue to monitor (5) ADHD: Code(s): F90.9 - Attention-deficit hyperactivity disorder, unspecified type Category: Medical Qualifiers: Attention deficit-hyperactivity disorder type: unspecified Qualified Code(s): F90.9 - Attention-deficit hyperactivity disorder, unspecified type Plan: Continue Adderall XR 20 mg daily (6) Skin lesion: Code(s): L98.9 - Disorder of the skin and subcutaneous tissue, unspecified Category: Medical Plan: Reports left lateral thigh small mole or skin tags appearing area that was flesh colored. The patient reports that she tries to freezing it off; the color changed to white and it became hard but did not fall off. Dermatology referral placed Orders: Orders 2 PT Evaluation and Treatment Today M54.50 - Low back pain, unspecified Medications: New 2 celecoxib (Celebrex) 100 mg PO BID PRN 60 caps 0RF pain
== END 2025-05-27 10:48 | disposition home or self-care (01) ==
LOC: HO.HMCH 09:21
DX: Z00.00 Encounter for general adult medical examination without abnormal findings (principal); M54.50 Low back pain, unspecified; Z01.419 Encounter for gynecological examination (general) (routine) without abnormal findings; E78.00 Pure hypercholesterolemia, unspecified; F90.9 Attention-deficit hyperactivity disorder, unspecified type; L98.9 Disorder of the skin and subcutaneous tissue, unspecified

== ENCOUNTER 2025-07-30 07:00 | Outpatient (RCR) | payer OTHER, SELFPAY ==
--- NOTE | 2025-07-08 08:51 | MHC.PT.EP ---
[facility] [place] Office [place] [facility] [place] [facility] [address] William Thomas [address] [phone] F: [phone] F: [phone] F: [phone] F: [phone] Physical Therapy Plan of Care Date of Evaluation: 07/08/25 Date of Surgery: n/a Diagnosis: low back pain Assessment: Patient is a 29 year old female presenting to PT with complaints of pain in her low back. Pt reports onset of pain began January 2025 due to insidious onset. She presents today with impairments in pain, radicular sx, tenderness to palpation, hip strength, core strength. 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 Pt expresses mcc goal of reducing pain, and is motivated to work towards this in PT. Clinical presentation today is most consistent with signs and sx associated with low back pain and pt will benefit from skilled PT 2 week x 4 weeks to address the following problems and impairments noted upon evaluation: pain, radicular sx, tenderness to palpation, hip strength, core strength. These problems limit the patient with the following functional activities: ambulating, bending, ADLs, standing, work. The prescribed treatment plan of care is medically necessary. Co-morbidities of hx c- section were identified and taken into considerations of plan of care. Pt was educated on HEP, role of PT, prognosis, POC. Frequency and Duration: The patient will be seen 2 x week x 4 weeks Short Term Goals: Pt will demonstrate centralization of sx in 2 weeks. Pt will demonstrate improved hip MMT strength by 1/3 grade in 2 weeks. Pt will demonstrate ability to perform PPT with good core control in 2 weeks. [employer] Goals: Pt will demonstrate improved Summer score by 10% in 4 weeks for improved functional mobility. Pt will demonstrate ability to bend into the oven with min to no pain in 4 weeks for improved functional mobility. Pt will demonstrate ability to ambulate with min to no pain in 4 weeks for return to PLOF. Treatment Plan: Modalities to reduce pain, spasms and effusion. Manual therapy to restore motion and function. Therapeutic exercise to improve strength and flexibility. Neuromuscular re-education for posture and balance. Therapeutic activities to return to functional activities of daily living. Electronically signed by: Essence Bello, PT, DPT, ATC Please sign and return to therapist. Thank you for your referral.
--- NOTE | 2025-09-01 07:24 | MHC.PT.DC ---
[facility] [place] Office [place] Office [place] Office [address] William Thomas [address] [phone] F: [phone] F: [phone] F: [phone] F: [phone] Physical Therapy Discharge Report Diagnosis: low back pain Date of Surgery: n/a Date of Evaluation: 07/08/25 Date of Discharge: 09/01/25 Treatments to Date: 5 Cancellations to Date: 4 No Shows to Date: 0 Discharge Status: Discharge Summary: Pt has not attended skilled PT in > 30 days. Therefore to be d/c per policy. Electronically signed by: Essence Bello, PT, DPT, ATC Please sign and return to therapist. Thank you for your referral.
== END 2025-09-01 07:24 | disposition home or self-care (01) ==
LOC: HO.PTCHIC 07:00
DX: M54.50 Low back pain, unspecified (principal)
CPT/HCPCS: 97110; 97140; 97161